=== PATIENT | female | born 1955 | race Caucasian/White ===

== ENCOUNTER 2018-12-06 10:21 | Emergency (ER) | payer BC ==
--- NOTE | 2018-12-06 12:41 | XRAY Report ---
Reason: cough Procedure Date: 12/06/2018 Accession Number: [id number] / [id number] Procedure: XR - Chest 2 View X-Ray CPT Code: 99763 FULL RESULT: EXAM: CHEST RADIOGRAPHY EXAM DATE: 12/06/2018 12:19 PM. CLINICAL HISTORY: Cough. COMPARISON: None. TECHNIQUE: 2 views. FINDINGS: Lungs/Pleura: No focal opacities evident. No pleural effusion. No pneumothorax. Normal volumes. Mediastinum: Heart and mediastinal contours are unremarkable. Other: None. IMPRESSION: Normal 2-view chest radiography. [facility]
[2018-12-06] MEDS ORDERED: BENZONATATE 100 MG CAPSULE PO STA (15:06)
[2018-12-06] MEDS ORDERED: DEXAMETHASONE 10 MG/ML VIAL PO STA (15:06)
[2018-12-06] MEDS ORDERED: ALBUTEROL NEB 2.5 MG/3 ML INH STA (15:06)
[2018-12-06] MEDS ORDERED: CHERRY SYRUP 10 ML UDC PO ONE (15:20)
--- NOTE | 2018-12-06 16:10 | ED Physician Documentation ---
History of Present Illness - Stated complaint Stated Complaint: FLU LIKE SX - Chief complaint Chief Complaint: General - Additonal information Additional information: 63-year-old female presents the emergency department with several days of nasal congestion, cough, body aches and feeling chilled. Symptoms are described as moderate. No relieving factors. No other associated symptoms. Review of Systems Constitutional: reports: Fever, Chills, Myalgias, Fatigue Eyes: denies: Discharge Ears: denies: Ear pain Nose: denies: Congestion Throat: denies: Sore throat Cardiac: denies: Chest pain / pressure Respiratory: reports: Cough GI: denies: Abdominal Pain Skin: denies: Rash Musculoskeletal: denies: Neck pain Neurologic: denies: Generalized weakness PD PAST MEDICAL HISTORY - Present Medications Home Medications: Ambulatory Orders Medication Instructions Recorded Confirmed Albuterol Sulf [Ventolin Hfa 1 - 2 puffs INH Q4HR PRN #1 inhaler 12/06/18 Inhaler] Benzonatate [Tessalon Perle] 100 mg PO TID PRN #30 capsule 12/06/18 Escitalopram [Lexapro] 1 tab ORAL DAILY 12/06/18 12/06/18 Hydrochlorothiazide 1 tab ORAL DAILY 12/06/18 12/06/18 Lisinopril 1 tab ORAL DAILY 12/06/18 12/06/18 Naproxen 500 mg PO BID PRN #60 tablet 12/06/18 Propranolol [Inderal] 1 tab ORAL DAILY 12/06/18 12/06/18 - Allergies Allergies/Adverse Reactions: Allergies Allergy/AdvReac Type Severity Reaction Status Date / Time No Known Drug Allergies Allergy Verified 12/06/18 10:38 PD ED PE NORMAL - General General: Alert and oriented X 3, No acute distress - HEENT HEENT: Atraumatic, PERRL, EOMI, Ears normal - Cardiac Cardiac: RRR, Strong equal pulses - Respiratory Respiratory: No respiratory distress. No: Clear bilaterally (Bilateral wheezing) - Derm Derm: Normal color - Extremities Extremities: No deformity - Neuro Neuro: Alert and oriented X 3, Normal speech - Psych Psych: Normal affect Results - Vitals Vitals: Vital Signs - 24 hr 12/06/18 12/06/18 12/06/18 10:33 13:44 15:24 Temperature 36.3 C L 36.5 C Heart Rate 64 78 100 Respiratory 16 22 20 Rate Blood Pressure 117/66 96/57 L O2 Saturation 96 99 Oxygen O2 Source Room air - Labs Labs: Laboratory Tests 12/06/18 10:46 Influenza A (Rapid) Negative Influenza B (Rapid) Negative - Rads (name of study) CXR Radiology: Final report received, See rad report PD MEDICAL DECISION MAKING - ED course ED course: Well-appearing, nontoxic well-hydrated individual, her symptoms appear to be of a viral etiology. Presently the patient appears appropriate for discharge and ongoing outpatient management. I discussed warning signs and recommended returning for any worsening or concerns Departure - Departure Disposition: Home, Self Care Clinical Impression: Bronchitis Condition: Good Instructions: ED Bronchitis Asthmatic, ED Upper Resp Infec No Abx Tx Follow-Up: ORESTES AGUIRRE I [Primary Care Provider] - Within 1 week Prescriptions: Albuterol Sulf [Ventolin Hfa Inhaler] 1 - 2 puffs INH Q4HR PRN #1 inhaler PRN Reason: Shortness Of Air/Wheezing Benzonatate [Tessalon Perle] 100 mg PO TID PRN #30 capsule PRN Reason: Cough Naproxen 500 mg PO BID PRN #60 tablet PRN Reason: Pain Comments: Please return to the emergency department for any worsening or any concerns
[2018-12-06 16:29] VITALS: BP 118/65
== END 2018-12-06 16:20 | disposition home or self-care (01) ==
LOC: ED 10:21
DX: J40 Bronchitis, not specified as acute or chronic (principal)
CPT/HCPCS: 71046; 87275; 87276; 94640; 99282; 99283; A9270

== ENCOUNTER 2021-02-28 08:42 | Emergency (ER) | payer MEDICARE, BC ==
--- NOTE | 2021-02-28 08:51 | ED Physician Documentation ---
PD HPI HEAD INJURY - Stated complaint Stated Complaint: HEAD PX - Chief complaint Chief Complaint: Laceration - History obtained from History obtained from: Patient - History of Present Illness Mechanism of head injury: Fell (she was carrying cardboard boxes and tripped on step in the garage, falling forward and struck face on ground, with glasses rim causing laceration lateral left orbital rim.) Where head injury occurred: Home Timing - onset: Today Location of injury: Left (left periorbital laceration from glasses that broke.), Front Associated symptoms: No: LOC, AMS, Nausea / vomiting Symptoms worsen with: Palpation Contributing factors: No: Anticoagulated, Intoxicated Similar symptoms before: Has not had sx before Recently seen: Not recently seen Review of Systems Constitutional: denies: Fever, Chills Eyes: denies: Loss of vision, Decreased vision, Photophobia, Irritation Nose: denies: Rhinorrhea / runny nose, Congestion Throat: denies: Sore throat Respiratory: denies: Cough GI: denies: Nausea, Vomiting Neurologic: denies: Focal weakness, Numbness, Altered mental status, Headache (just hurting left periorbital area) PD PAST MEDICAL HISTORY - Past Medical History Cardiovascular: None Respiratory: None Neuro: None - Present Medications Home Medications: Ambulatory Orders Medication Instructions Recorded Confirmed Escitalopram [Lexapro] 1 tab ORAL DAILY 12/06/18 12/06/18 Naproxen 500 mg PO BID PRN #60 tablet 12/06/18 Propranolol [Inderal] 1 tab ORAL DAILY 12/06/18 12/06/18 hydroCHLOROthiazide 1 tab ORAL DAILY 12/06/18 12/06/18 [Hydrochlorothiazide] lisinopriL [Lisinopril] 1 tab ORAL DAILY 12/06/18 12/06/18 Bupropion HCl [Wellbutrin Xl] 1 tab DAILY 02/28/21 02/28/21 Potassium Chloride [Micro-K] 10 meq PO 0800 02/28/21 02/28/21 - Allergies Allergies/Adverse Reactions: Allergies Allergy/AdvReac Type Severity Reaction Status Date / Time No Known Drug Allergies Allergy Verified 02/28/21 08:50 PD ED PE NORMAL - Vitals Vital signs reviewed: Yes - General General: Alert and oriented X 3, No acute distress, Well developed/nourished - HEENT HEENT: PERRL, EOMI (no pain wtih eye movement), Other (The left periorbital area just on the lateral aspect of the upper eyelid shows 1.5 cm laceration with minimal bleeding. No foreign body. 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 ), Normal speech Eye Opening: Spontaneous Motor: Obeys Commands Verbal: Oriented GCS Score: 15 Results - Vitals Vitals: Vital Signs - 24 hr 02/28/21 02/28/21 08:47 10:00 Temperature 36.0 C L Heart Rate 68 66 Respiratory 16 16 Rate Blood Pressure 187/97 H 168/80 H O2 Saturation 95 96 Oxygen O2 Source Room air Procedures - Laceration (location) left periorbital rim Length in cm: 1.5 Wound type: Curved, Into subcut fat Neurovascular status: Sensory intact, Motor intact Anesthesia: LET Wound preparation: Irrigated copiously NS, Wound explored, To the base. No: FB identified Skin layer closure: Nylon, Running, Size #-0 - enter number (6) Other: Patient tolerated well, No complications, Neurovascular intact, Tetanus UTD PD MEDICAL DECISION MAKING - ED course Complexity details: considered differential (No concussive symptoms and not on blood thinners. ), d/w patient Departure - Departure Disposition: 01 Home, Self Care Clinical Impression: Laceration of periorbital area Condition: Stable Instructions: ED Laceration Facial Sutr Tape Follow-Up: ORESTES AGUIRRE I [Primary Care Provider] - Comments: Suture care instructions it is okay to wash and shower. Clean off the wound twice a day with soap and water, or peroxide and water. Apply some antibiotic ointment to it to keep it moist. Also to watch for signs of infection such as purulence, redness or increasing pain. Return to your primary care or the ER at the specified time for suture removal. Suture removal 5 to 7 days. Discharge Date/Time: 02/28/21 10:30
[2021-02-28] MEDS ORDERED: ACETAMINOPHEN 325 MG TABLET PO STA (08:57)
[2021-02-28] MEDS ORDERED: LIDOCAINE-EPINEPH-TETRACAINE 3 ML SYRINGE TOP STA (08:57)
[2021-02-28 16:22] VITALS: BP 168/80
== END 2021-02-28 10:30 | disposition home or self-care (01) ==
LOC: ED 08:42
DX: S01.112A Laceration without foreign body of left eyelid and periocular area, initial encounter (principal); W01.198A Fall on same level from slipping, tripping and stumbling with subsequent striking against other object, initial encounter; Y93.89 Activity, other specified; Y92.008 Other place in unspecified non-institutional (private) residence as the place of occurrence of the external cause
CPT/HCPCS: 12001; 12011; 99282; A9270

== ENCOUNTER 2022-07-01 15:28 | Outpatient (CLI) | payer MEDICARE, BC ==
[2022-07-01 15:53] LABS: BASOPHILS % (AUTO) 0.5 %; EOSINOPHILS # (AUTO) 0.1 10^3/uL (0.0-0.7); EOSINOPHILS % (AUTO) 1.5 %; HCT - HEMATOCRIT 45.8 % (37.0-47.0); HGB - HEMOGLOBIN 15.2 g/dL (12.0-16.0); LYMPHOCYTES # (AUTO) 2.1 10^3/uL (1.5-3.5); LYMPHOCYTES % (AUTO) 28.1 %; MEAN CORPUSCULAR HEMOGLOBIN 30.7 pg (27.0-31.0); MEAN CORPUSCULAR HGB CONC 33.2 g/dL (32.0-36.0); MEAN CORPUSCULAR VOLUME 92.5 fL (81.0-99.0); MEAN PLATELET VOLUME 11.3 fL (7.9-10.8); MONOCYTES # (AUTO) 0.4 10^3/uL (0.0-1.0); MONOCYTES % (AUTO) 5.2 %; NEUTROPHILS # (AUTO) 4.7 10^3/uL (1.5-6.6); NEUTROPHILS % (AUTO) 64.6 %; PLT - PLATELET COUNT 211 10^3/uL (130-450); RED BLOOD COUNT 4.95 10^6/uL (4.20-5.40); RED CELL DISTRIBUTION WIDTH 13.2 % (12.0-15.0); WHITE BLOOD COUNT 7.3 x10^3/uL (4.8-10.8)
[2022-07-01 16:16] LABS: THYROID STIMULATING HORMONE 0.84 uIU/mL (0.34-5.60)
[2022-07-01 16:22] LABS: FERRITIN 119.6 ng/mL (11.0-306.8)
[2022-07-01 16:28] LABS: % IRON SATURATION 23 % (20-50); ALBUMIN/GLOBULIN RATIO 1.2 (1.0-2.2); ALKALINE PHOSPHATASE 75 IU/L (42-121); ALT ALANINE AMINOTRANSFERASE 19 IU/L (10-60); AST ASPARTATE AMINOTRANSFERASE 20 IU/L (10-42); BILIRUBIN,TOTAL 0.3 mg/dL (0.2-1.0); BUN - BLOOD UREA NITROGEN 15 mg/dL (6-20); CALCIUM 9.3 mg/dL (8.5-10.3); CARBON DIOXIDE - CO2 27 mmol/L (21-32); CHLORIDE 103 mmol/L (101-111); CHOL/HDL RATIO 5.6 (<4.4); CHOLESTEROL 248 mg/dL; GFR - MDRD 55 (>89); HDL CHOLESTEROL 44 mg/dL; IRON 79 ug/dL (28-170); LDL CHOLESTEROL,CALCULATED 140 mg/dL; LDL/HDL RATIO 3.2 (<4.4); POTASSIUM 3.2 mmol/L (3.5-5.0); SODIUM 143 mmol/L (135-145); TOTAL IRON BINDING CAPACITY 346 ug/dL (250-450); TOTAL PROTEIN 7.4 g/dL (6.7-8.2); TRANSFERRIN 247 mg/dL (192-382); TRIGLYCERIDES 322 mg/dL; VLDL CHOLESTEROL 64 mg/dL
[2022-07-01 16:42] LABS: GLUCOSE 97 mg/dL (70-100)
== END 2022-07-01 15:29 | disposition home or self-care (01) ==
LOC: LAB 15:28
PROVIDERS: ATTEND Student in an Organized Health Care Education/Training Program
DX: E78.49 Other hyperlipidemia (principal); R53.83 Other fatigue
CPT/HCPCS: 36415; 80053; 80061; 82607; 82728; 83540; 83721; 84443; 84466; 85025

== ENCOUNTER 2023-12-07 12:30 | Outpatient (CLI) | payer BC, MEDICARE | END 2023-12-07 12:45 | disposition home or self-care (01) | LOC: LAB.N 12:30 | PROVIDERS: ATTEND Physician Assistant Medical | DX: R10.30 Lower abdominal pain, unspecified (principal) | CPT/HCPCS: 87077; 87086 ==